=== PATIENT | female | born 1955 | race Caucasian/White ===

== ENCOUNTER 2018-12-29 15:06 | Emergency (ER) | payer BC ==
[~2018-12-29] VITALS: Ht 165.1 cm; Wt 63.6 kg
[2018-12-29 15:11] VITALS: TEMP 97.4
[2018-12-29] MEDS ORDERED: LEVOXYL0.05 MG (15:36)
[2018-12-29] MEDS ORDERED: CLARITIN 1010 MG/TAB PO (15:37)
[2018-12-29] MEDS ORDERED: LIPITOR 10MG10 MG PO (15:37)
[2018-12-29] MEDS ORDERED: ZOLOFT 100MG100 MG PO (15:38)
[2018-12-29] MEDS ORDERED: VASCEPA1 GM PO (15:40)
[2018-12-29] MEDS ORDERED: NEURONTIN100 MG/CAP PO (15:40)
[2018-12-29 16:00] LABS: BASO % 0.5 % (0.0-2.0); EOS # 0.2 (0.0-0.7); EOS % 2.6 % (0-4.0); GRAN # 5.2 (1.4-6.5); GRAN % 62.1 % (42.2-75.2); HEMOGLOBIN 15.9 g/dl (12.5-16.0); LYMPH # 2.4 (1.2-3.4); MEAN CELL VOLUME 86 fl (80.0-100.0); MEAN CORPUSCULAR HEMOGLOBIN 31 pg (27.0-31.0); MEAN CORPUSCULAR HGB CONC 36 g/dl (33.0-37.0); MEAN PLATELET VOLUME 9.3 fl (7.4-10.4); MONO # 0.5 (0.1-0.6); MONO % 5.6 % (1.7-9.3); PLATELET COUNT 209 K/mm3 (130-400); RED BLOOD COUNT 5.13 M/mm3 (4.10-5.30); REDCELL DISTRIBUTION WIDTH-CV 11.9 % (11.5-14.5)
[2018-12-29 16:02] LABS: COLLECTION METHOD CLEAN CATCH
[2018-12-29 16:14] LABS: ALANINE AMINOTRANSFERASE 24 U/L (9-52); ALBUMIN 4.1 gm/dL (3.5-5.0); ALKALINE PHOSPHATASE 44 U/L (50-136); ANION GAP 12 mmol/L (7-16); AST,SGOT 31 U/L (15-37); BILIRUBIN,TOTAL 0.7 mg/dL (0.0-1.0); BLOOD UREA NITROGEN 11 mg/dL (7-17); CALCIUM 9.2 mg/dL (8.4-10.2); CARBON DIOXIDE 21 mmol/L (22-30); CHLORIDE 107 mmol/L (98-107); CREATININE, serum 0.59 (0.52-1.25); GLUCOSE 99 mg/dL (74-106); LIPASE 162 U/L (23-300); POTASSIUM 3.4 mmol/L (3.4-5.0); SODIUM 140 mmol/L (137-145); TOTAL PROTEIN 7.4 gm/dL (6.4-8.2)
[2018-12-29 16:29] LABS: C-REACTIVE PROTEIN < 0.5 mg/dL (0.0-0.9); TROPONIN-I < 0.012 ng/mL (0.000-0.035)
[2018-12-29 16:41] LABS: MUCOUS Present /lpf; PH 7 (5-8); URINE APPEARANCE Cloudy; URINE BACTERIA Rare /hpf; URINE BILIRUBIN Negative (NEGATIVE); URINE BLOOD 3+ (NEGATIVE); URINE CALCIUM OXALATE CRYSTAL Present /hpf; URINE GLUCOSE Negative (NEGATIVE); URINE KETONE Negative (NEGATIVE); URINE LEUKOCYTE ESTERASE Trace (NEGATIVE); URINE NITRATE Negative (NEGATIVE); URINE PROTEIN(semi-quant) 1+ (NEGATIVE); URINE RBC >50 /hpf; URINE UROBILINOGEN Negative (NEGATIVE)
[2018-12-29 16:44] LABS: URINE COLOR Amber
[2018-12-29] MEDS ORDERED: ZOFRAN 4MG T4 MG/TAB PO (17:41)
[2018-12-29] MEDS ORDERED: FLOMAX 0.40.4 MG/CAP PO (17:41)
[2018-12-29] MEDS ORDERED: NORCO 325 MG-51 TAB PO (17:41)
[2018-12-29 18:15] VITALS: BP 120/82; PULSE 76
== END 2018-12-29 18:15 | disposition home or self-care (01) ==
LOC: COL.ER 15:06
PROVIDERS: Emergency Medicine
DX: N20.2 Calculus of kidney with calculus of ureter (principal); F41.9 Anxiety disorder, unspecified
CPT/HCPCS: J1170; J2405; J7030; Q9967